=== PATIENT | female | born 1960 | race Hispanic/Latino ===

== ENCOUNTER 2019-02-11 21:55 | Emergency (ER) | payer MEDICARE ==
[2019-02-11] MEDS ORDERED: IBUPROFEN PO ONE (22:13)
--- NOTE | 2019-02-11 22:13 | Emergency Department Report ---
ED General Adult HPI - General Chief complaint: Fall Stated complaint: FALL Time Seen by Provider: 02/11/19 22:05 Source: patient, EMS (verbal report received from EMS.ems notes not available at time of chart dictation), RN notes reviewed Mode of arrival: Stretcher Limitations: Physical Limitation - History of Present Illness Initial comments: Past medical history: Traumatic brain injury, hypertension, contracted right upper extremity, typically wheelchair. This is a 58-year-old female, not known to this provider previously, who is brought to the hospital by emergency medical services for evaluation of right knee and leg pain status post fall. As per verbal report from EMS, patient was being pushed in a wheelchair, at her personal halfway, and a wheelchair encountered an area of uneven terrain, and the patient's accidentally fell out of her wheelchair onto her right knee. She reports not hitting her head or her neck. She complains of right leg pain. The pain is sharp and achy. It increases with palpation. It decreases with rest. It does not radiate anywhere. The patient denies headache, neck pain, chest pain, abdominal pain, shortness of breath. She denies urinary symptoms. She denies vomiting and diarrhea. She thinks she is up-to-date with a tetanus vaccination. She has no proximal hip pain. -: Sudden Location: right, lower extremity Radiation: non-radiation Quality: aching Consistency: other Improves with: other Worsens with: other - Related Data Allergies Allergy/AdvReac Type Severity Reaction Status Date / Time No Known Allergies Allergy Unverified 02/11/19 22:47 ED Review of Systems ROS: Stated complaint: FALL Other details as noted in HPI Constitutional: denies: fever Eyes: denies: vision change ENT: denies: epistaxis Respiratory: denies: cough Cardiovascular: denies: chest pain Gastrointestinal: denies: abdominal pain Genitourinary: denies: dysuria Musculoskeletal: arthralgia, myalgia Neurological: weakness (chronic weakness, neither new, worsened or different) Hematological/Lymphatic: other (ecchymosis) ED Physical Exam - General Limitations: Physical Limitation General appearance: alert, in no apparent distress - Head Head exam: Present: atraumatic, normocephalic - Eye Eye exam: Present: normal appearance - ENT ENT exam: Present: normal exam, normal orophraynx, mucous membranes moist, normal external ear exam - Neck Neck exam: Present: normal inspection, full ROM. Absent: tenderness, meningismus - Respiratory Respiratory exam: Present: normal lung sounds bilaterally. Absent: respiratory distress - Cardiovascular Cardiovascular Exam: Present: regular rate, normal rhythm, normal heart sounds. Absent: bradycardia, tachycardia, irregular rhythm, systolic murmur, diastolic murmur, rubs, gallop - GI/Abdominal GI/Abdominal exam: Present: soft. Absent: distended, tenderness, guarding, rebound, rigid, pulsatile mass - Extremities Exam Extremities exam: Present: tenderness (there is tenderness noted on the right proximal tibia, and there is swelling and ecchymosis noted. There is no distal lung bony tenderness. There is a contracted right upper extremity. The pelvis is stable. There is no long bony tenderness in the bilateral upper extremities. There is no long bony tenderness in the left lower extremity. In the right lower extremity, there is no proximal femur tenderness.). Absent: normal inspection, full ROM - Back Exam Back exam: Present: normal inspection. Absent: tenderness, CVA tenderness (R), CVA tenderness (L) - Neurological Exam Neurological exam: Present: alert, other (the patient is alert to name. The patient follows commands. The patient has sensation intact to light touch in 4 extremities. She is moving 4 extremities spontaneously.) - Psychiatric Psychiatric exam: Present: normal affect, normal mood - Skin Skin exam: Present: warm, ecchymosis ED Course Vital Signs 02/11/19 22:42 Temperature 98.6 F Pulse Rate 97 H Respiratory 18 Rate Blood Pressure 146/103 O2 Sat by Pulse 100 Oximetry - Reevaluation(s) Reevaluation #1: 02/11/19 22:29 Differential diagnosis, including but not limited to: Fracture, dislocation, contusion Assessment and plan: 58-year-old female with a reported witnessed mechanical fall, with abrasion and ecchymosis to the right proximal tibia/fibula. She has no pain with passive range of motion, however, the muscles feel firm on their e xamination. We will obtain screening laboratory studies to assess for rhabdomyolysis/myositis, although clinically doubt this. She does not have pain with passive range of motion of the toes. She has intact capillary refill, and intact dorsalis pedis pulses in the bilateral lower extremities. She will be given pain medication. X-rays of the right lower extremity will be obtained. We will reassess after her data points have resulted. Reevaluation #2: 02/11/19 23:56 X-ray shows proximal tibial plateau fracture, small fibula fracture. Patient neurovascularly intact. CK 46. Somewhat tense in the anterior tibial compartment. This hospital does not have orthopedic surgery available for consultation. Patient has significant orthopedic injury, and in my opinion requires consultation and evaluation by an orthopedic expert. It is a long holiday weekend, and the patient will likely not be able to follow up in an expedient manner as an outpatient, therefore, we will transfer her to [facility], for subspecialty consultation not available at this facility. Discussed with orthopedics at their facility, Dr. Rizo, who indicated he could see the patient in the emergency room in consultation. Discussed this with the patient, who verbalized understanding, and who is amenable to transfer. Reevaluation #3: 02/12/19 00:05 Dr Arellano accepts as an ER to ER transfer ED Medical Decision Making - Lab Data Result diagrams: 02/11/19 22:46 Vital Signs 02/11/19 22:42 Temperature 98.6 F Pulse Rate 97 H Respiratory 18 Rate Blood Pressure 146/103 O2 Sat by Pulse 100 Oximetry Lab Results 02/11/19 Range/Units 22:46 Sodium 137 (137-145) mmol/L Potassium 4.4 (3.6-5.0) mmol/L Chloride 98.4 (98-107) mmol/L Carbon Dioxide 27 (22-30) mmol/L Anion Gap 16 mmol/L BUN 17 (7-17) mg/dL Creatinine 0.8 (0.7-1.2) mg/dL Estimated GFR > 60 ml/min BUN/Creatinine Ratio 21 % Glucose 118 H (65-100) mg/dL Calcium 9.4 (8.4-10.2) mg/dL Magnesium 1.70 (1.7-2.3) mg/dL Total Creatine Kinase 46 (30-135) units/L - Radiology Data Radiology results: report reviewed, image reviewed Print Report Referring Physician: LENIN LEE Patient Name: ASHISH FERGUSON Date of : 1960 Sex: Female Report Date: 2019-02-11 Report Status: Finalized Findings [facility] [address] [place] [address] XRay Report Signed Patient: ASHISH FERGUSON MR#: [id number] : 1960 Acct:[id number] Age/Sex: 58 / F ADM Date: 02/11/19 Loc: ED Attending Dr: Ordering Physician: LENIN LEE MD Date of Service: 02/11/19 Procedure(s): XR tibia fibula 2V RT Accession Number(s): [id number] cc: LENIN LEE MD Fluoro Time In Minutes: PROCEDURE: XR TIBIA FIBULA 2V RT TECHNIQUE: Right tibia and fibula AP and lateral views HISTORY: fall right leg pain COMPARISONS: None available FINDINGS: There is an impacted fracture of the proximal tibial shaft approximately 3 cm from the tibial plateau. There is an impacted fracture of the proximal fibula. The remaining osseous structures appear intact. Mild soft tissue swelling. Slight joint effusion. Previous surgery in the lower lateral fibula and medial tibia. IMPRESSION: Impacted fracture of the proximal tibial shaft approximately 3 cm from the tibial plateau. There is an impacted fracture of the proximal fibula. This document is electronically signed by Agustina Hardy DO., Feb 11 2019 11:26:43 PM ET Transcribed By: [facility] Dictated By: AGUSTINA HARDY MD Electronically Authenticated By: AGUSTINA HARDY MD Signed Date/Time: 02/11/19 2211 Critical care attestation.: If time is entered above; I have spent that time in minutes in the direct care of this critically ill patient, excluding procedure time. ED Disposition Clinical Impression: Tibial plateau fracture, right Qualifiers: Encounter type: initial encounter Fracture type: closed Qualified Code(s): S82.141A - Displaced bicondylar fracture of right tibia, initial encounter for closed fracture Fracture, fibula, proximal Qualifiers: Encounter type: initial encounter Fracture type: closed Fracture morphology: unspecified fracture morphology Laterality: right Qualified Code(s): S82.831A - Other fracture of upper and lower end of right fibula, initial encounter for closed fracture Disposition: DC/TX-02 SHRT-TRM GEN HOSP IP Is pt being admited?: No Does the pt Need Aspirin: No Condition: Good Referrals: PRIMARY CARE, [Primary Care Provider] - 3-5 Days
[2019-02-11 23:27] LABS: BUN/Creatinine Ratio 21; Blood Urea Nitrogen 17 mg/dL (7-17); Calcium 9.4 mg/dL (8.4-10.2); Hemolysis Index 28
--- NOTE | 2019-02-11 23:28 | XRay Report ---
PROCEDURE: XR TIBIA FIBULA 2V RT TECHNIQUE: Right tibia and fibula AP and lateral views HISTORY: fall right leg pain COMPARISONS: None available FINDINGS: There is an impacted fracture of the proximal tibial shaft approximately 3 cm from the tibial plateau . There is an impacted fracture of the proximal fibula. The remaining osseous structures appear intac t. Mild soft tissue swelling. Slight joint effusion. Previous surgery in the lower lateral fibula and medial tibia. IMPRESSION: Impacted fracture of the proximal tibial shaft approximately 3 cm from the tibial plateau. There is a n impacted fracture of the proximal fibula. This document is electronically signed by Sol Hardy DO., Feb 11 2019 11:26:43 PM ET
[2019-02-12] MEDS ORDERED: SUBLIMAZE IV ONE (00:07)
[2019-02-12 01:16] VITALS: BP 132/60
== END 2019-02-12 02:06 | disposition short-term general hospital (02) ==
LOC: ED 21:55
DX: S82.141A Displaced bicondylar fracture of right tibia, initial encounter for closed fracture (principal); S82.831A Other fracture of upper and lower end of right fibula, initial encounter for closed fracture; W18.30XA Fall on same level, unspecified, initial encounter; Y93.89 Activity, other specified; Y92.89 Other specified places as the place of occurrence of the external cause; Y99.8 Other external cause status
CPT/HCPCS: 29505; 36415; 73590; 80048; 82550; 83735; 96374; 99285; J3010